=== PATIENT | female | born 1975 | race Caucasian/White ===

== ENCOUNTER 2020-09-17 18:25 | Outpatient (REF) | payer OTHER, SELFPAY | END 2020-09-17 18:26 | disposition home or self-care (01) | LOC: HO.LNP 18:25 | PROVIDERS: Visit Provider Family Medicine | DX: B34.9 Viral infection, unspecified (principal); Z20.822 Contact with and (suspected) exposure to COVID-19 | CPT/HCPCS: U0003; U0005 ==